=== PATIENT | male | born 1950 | race Caucasian/White ===

== ENCOUNTER 2022-12-03 13:36 | Emergency (ER) | payer MEDICARE, BC, SELFPAY ==
[2022-12-03 13:52] VITALS: BP 135/61; PULSE 48; RESP 16; TEMP 35.6; O2SAT 95; BMI 29.2
--- NOTE | 2022-12-03 14:04 | ED_ITS ---
HPI - Wound/Laceration General Time Seen by Provider: 14:04 Date Seen: 12/03/22 Chief Complaint: Laceration/Wound Stated Complaint: Lac R hand Time Seen by Provider: 12/03/22 14:04 Source: patient and RN notes reviewed Mode of arrival: ambulatory Limitations: no limitations History of Present Illness HPI narrative: Klever is a very pleasant 72-year-old male with unknown last tetanus who comes to the emergency room for evaluation of right hand laceration. Patient was noted to be helping rehab an old house and was using a band saw when the piece of wood flew back lacerated his right hand and bent his wrist backwards. He did not lose any sensation and is able to move his fingers. He notes that there is a soreness about his hand and wrist. He does have range of motion of his wrist. Patient has not taken any medications at this point. He is on blood thinners. He is unsure of his last tetanus shot. Related Data Home Medications Medication Instructions Recorded Confirmed metoprolol succinate 25 mg 25 mg PO QDAY 02/18/22 12/03/22 tablet,extended release 24 hr rivaroxaban 20 mg tablet (Xarelto) 20 mg PO DAILY 12/03/22 12/03/22 Previous Rx's Medication Instructions Recorded terbinafine HCl 250 mg tablet 250 mg PO QDAY #90 tabs 02/18/22 cephalexin 500 mg capsule 500 mg PO BID 5 days #10 caps 12/03/22 Allergies Allergy/AdvReac Type Severity Reaction Status Date / Time No Known Drug Allergies Allergy Verified 02/18/22 11:32 Review of Systems Narrative: Denies numbness or tingling. [facility] Medical History (Updated 12/03/22 @ 15:13 by Nancie Walden MD) Toenail fungus ?B35.1 - Tinea unguium (ICD-10) Social History Smoking Status: Never smoker How often do you have a drink containing alcohol: monthly or less AUDIT-C Alcohol total score: 1 Non-prescribed substance use: denies use Exam Narrative: Exam Narrative: Patient is alert and oriented very pleasant. His Marsha accompanies him and is very loving and supportive. Klever is presenting in no acute distress. No respiratory distress. Examination shows a large laceration in the palm of his hand. This compromises epidermis dermis and subcutaneous tissue. Gently I do peeled this back and I do not see any foreign bodies. This is a jagged irregular laceration laceration measuring approximately 3.5 cm. Patient has full sensation distally he has flexion extension that is intact. Good capillary refill distally. He has thumb opposition that is fully intact. He does have flexion extension at the wrist and no snuffbox tenderness. Small amount of ecchymosis at the thenar eminence. Const: Vital Signs, click to edit/add: Vital Signs - 24 hr 12/03/22 13:52 Temperature 96.0 F L Pulse Rate [Right Pulse Oximeter] 48 L Respiratory Rate 16 Blood Pressure [Ri ght Upper Arm] 135/61 Pulse Oximetry 95 Oxygen Delivery Me thod Room Air Documenting provider has reviewed patient's vital signs: yes Course Course Hospital Course: At this time remain agrees to have this area numbed. I used 1% lidocaine with epinephrine. Will have x-ray of the hand to ensure no significant foreign body. Plan on wound irrigation upon his return. Suturing also planned at this time. Reevaluation(s) Reevaluation #1: No foreign body by my read on the x-ray. Radiological over-read concurs. Wound was irrigated with 500 mL of normal saline with high-pressure wash. Vital Signs Vital signs: Initial Vital Signs Temperature 96.0 F L 12/03/22 13:52 Temperature Source Temporal Artery Scan 12/03/22 13:52 Pulse Rate 48 L 12/03/22 13:52 Pulse Rhythm Regular 12/03/22 13:52 Respiratory Rate 16 12/03/22 13:52 Blood Pressure 135/61 12/03/22 13:52 Blood Pressure Mean 85 12/03/22 13:52 Blood Pressure Position Sitting 12/03/22 13:52 Pulse Oximetry 95 12/03/22 13:52 Oxygen Delivery Method Room Air 12/03/22 13:52 Vital Signs Temperature 96.0 F L 12/03/22 13:52 Pulse Rate 48 L 12/03/22 13:52 Respiratory Rate 16 12/03/22 13:52 Blood Pressure 135/61 12/03/22 13:52 Pulse Oximetry 95 12/03/22 13:52 Oxygen Delivery Method Room Air 12/03/22 13:52 Temperature 96.0 F L 12/03/22 13:52 Pulse Rate 48 L 12/03/22 13:52 Respiratory Rate 16 12/03/22 13:52 Blood Pressure 135/61 12/03/22 13:52 Pulse Oximetry 95 12/03/22 13:52 Oxygen Delivery Method Room Air 12/03/22 13:52 MDM - Wound/Laceration MDM Narrative Medical decision making narrative: 1. Hand laceration-no evidence of foreign body. Wound was anesthetized, irrigated, explored and then sutured. Superficial skin flap removed. Recommend no soaking of the wound such as in a bathtub, swimming pool or doing dishes. May wash hand and then gently pat dry. Monitor for any signs of infection and seek medical attention if you would notice increasing redness, pus draining from the wound fever or chills. Sutures removed in 10 days time. Will treat with Keflex 500 mg p.o. b.i.d for 5 days. 2. Soft tissue injury -evidence of underlying fracture. Wrist without any snuffbox tenderness. Tylenol as needed for pain. Note patient had gradually increased ecchymosis noted of the thenar eminence. This was area of discomfort. No obvious hematoma, fluctuance or increasing size of this area. Surprisingly this wound did not extensively bleed given patient's known use of Xarelto. 3. Bradycardia-patient notes history of AFib a flutter currently on Xarelto. He was noted to have heart rate between 48 and 51 today. Notes that he is on metoprolol. He is asymptomatic to this. EKG reassuring with no evidence of acute ST or T-wave changes. He will follow-up with Cardiology in regards to this. 4. Tetanus updated-unable to find recent records and patient was agreeable to Tdap update. 5. Disposition-home at this time. Suture removal in 10 days time at the clinic. Return for worsening symptoms. Medical Records Attestation: I reviewed the patient's medical records. Imaging Data Hand x-ray: Attestation: I have reviewed the pertinent imaging results. My impression: No obvious foreign bodies Radiologist's impression: Air within the soft tissues along the palmar margin of the hand at the level of the metacarpals. Soft tissue swelling along the thenar eminence. No radiodense foreign body identified. No fracture or dislocation. Minor spurring of the DIP joint of the right 5th finger. IMPRESSION: Soft tissue swelling and air within the soft tissues along the palmar margin of the hand. No fracture. No radiodense foreign body. Discharge Plan Discharge Clinical Impression: Hand laceration Patient Disposition: Home, Self-Care Condition: Improved Instructions: Laceration (ED) Additional Instructions: Recommend no soaking of the wound such as in a bathtub, swimming pool or doing dishes. May wash hand and then gently pat dry. Monitor for any signs of infection and seek medical attention if you would notice increasing redness, pus draining from the wound fever or chills. Sutures removed in 10 days time. Keflex as directed for 5 days. Prescriptions: New cephalexin 500 mg capsule 500 mg PO BID 5 Days Qty: 10 0RF No Action metoprolol succinate 25 mg tablet extended release 24 hr 25 mg PO QDAY terbinafine HCl 250 mg tablet 250 mg PO QDAY Qty: 90 0RF Xarelto 20 mg tablet 20 mg PO DAILY Follow Up/Referrals: Enedelia Schofield MD, FAAD [Staff Physician] - Stand Alone Forms: [facility] Info Instructions Procedures Laceration Laceration 1: Pre procedure diagnosis: Hand laceration Written consent by: patient Name of person performing procedure: Nancie Walden Site: hand Side (If applicable): right Size (cm): 3 Description: irregular and contaminated Depth: simple, single layer Local Anesthetic: lidocaine 1% and with epi Amount of anesthesia used (mL): 3 Pre-repair: wound explored, irrigated extensively, deep structures intact and wound margins revised Skin layer closed with: nylon Size (cm): 5-0 Number of sutures: 8 Technique: simple, interrupted Specimens removed (if any): Good wound closure achieved in spite of irregular margins. Conclusion: patient tolerated procedure
--- NOTE | 2022-12-03 14:20 | CRLHL7_ITS ---
For Patients: As a result of the Cures Act, medical imaging exams and procedure reports are released immediately into your electronic medical record. You may view this report before your referring provider. If you have questions, please contact your health care provider. INDICATION: Evaluate foreign body. Wood shot at hand. TECHNIQUE: Two views of the right hand. FINDINGS: Air within the soft tissues along the palmar margin of the hand at the level of the metacarpals. Soft tissue swelling along the thenar eminence. No radiodense foreign body identified. No fracture or dislocation. Minor spurring of the DIP joint of the right 5th finger. IMPRESSION: Soft tissue swelling and air within the soft tissues along the palmar margin of the hand. No fracture. No radiodense foreign body. Dictated by Juventino Mcneill MD @ 12/03/2022 3:29:00 PM (Electronically Signed)
[2022-12-03] MEDS: TETANUS/DIPHTH/PERTUSSIS 0.5 ML SYRINGE IM (15:35)
--- NOTE | 2022-12-03 16:21 | ED.NURSE ---
Bacitracin applied to wound on pt R hand. Wound dressed with telfa and gauze roll.
--- NOTE | 2022-12-03 19:30 | ED.NURSE ---
Pt called in regards to rx. Switched rx to [facility] at pt request.
== END 2022-12-03 16:23 | disposition home or self-care (01) ==
PROVIDERS: Emergency Provider Family Medicine; PCP Family Medicine
DX: S61.411A Laceration without foreign body of right hand, initial encounter (principal); W31.2XXA Contact with powered woodworking and forming machines, initial encounter; Z23 Encounter for immunization
CPT/HCPCS: 12002; 73120; 90471; 90715; 99283; 99284